=== PATIENT | female | born 1935 | race Caucasian/White ===

== ENCOUNTER 2017-02-20 15:00 | Emergency (ER) | payer OTHER ==
--- NOTE | 2017-02-20 16:23 | DI ---
CT HEAD SCAN WITHOUT IV CONTRAST, 02/20/2017 3:22 PM : Clinical History: Injury. The patient fell 3 days ago and now has confusion. The patient is anticoagu lated with Plavix. Previous Exam: None at this facility. Scans are obtained from the foramen magnum to the vertex without IV contrast. The fourth ventricle is of normal size, shape, position and contour. The third and lateral ventricles are very mildly dilated but are otherwise normal. There are no abnormal areas of increased or decrea sed density. Specifically, there is no evidence of an acute intracranial hemorrhagic focus. There is moderate cerebellar and cerebral atrophy. There are no extracerebral mantles or shift of the midline structures. Bone window evaluation is normal. The paranasal sinuses are normal. READIN. There is no evidence of an acute intracranial hemorrhagic focus or bland infarct. 2. Moderate cerebellar and cerebral atrophy.
--- NOTE | 2017-02-20 16:35 | DI ---
LEFT KNEE, 02/20/2017 3:23 PM: Clinical History: Injury. The patient fell. Previous Exam: 10/08/2013. 3 views are submitted. There is no acute soft tissue, osseous, or joint abnormality. Calcifications a re present in the medial and lateral menisci and the patellar cartilage indicating chondrocalcinosis. There is mild lateral subluxation of the patella with degenerative arthritic change involving the la teral portion of the patellofemoral joint. Readin. There is no acute fracture or dislocation. 2. Chondrocalcinosis. 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
--- NOTE | 2017-02-20 16:56 | PDOC ---
Fall HPI - General Chief Complaint: Fall Stated Complaint: FALL TODAY Date Seen by Provider: 02/20/17 Time Seen by Provider: 15:15 Source: POSITIVE: Patient Exam Limitations: POSITIVE: No limitations Nurse's Notes Reviewed & Considered: Yes - History of Present Illness Initial Comments: The patient is an 81-year-old female who resents to the emergency department after a fall on Sunday this last weekend. She states that she was in her home and tripped and fell forward. She states that she landed on both of her knees and subsequently hit her head. She denies any loss of consciousness however did have an abrasion to her forehead. She also is complaining primarily of left knee pain. She denies any injury to her hands or wrists, chest wall or abdomen. She denies any neck or back pain. She has not had any associated headaches however she reports she doesn't feel as sharp is normal and has been having some problems with short-term memory the last couple of days. She also has had some intermittent dizziness however this seems to be better today. She denies any numbness or weakness in her arms or legs. She does take Plavix for a history of TIA. Have you received a tetanus shot in the past 10 years?: Unknown - Patient Home Medications Home Medications: Home Medications Zyrtec 1 tab PO QD 09/12/11 Ibuprofen 2 cap PO BID PRN 10/17/12 Blood-Glucose Meter [Freestyle [place] Lite] 1 each MC QD #1 each 04/24/14 Test Strips 1 each IN 1-2X daily #50 strip 04/30/14 Docusate Sodium [Colace] 100 mg PO DAILY cap 09/13/15 Fluocinonide 30 gm TOPICAL DAILY tube 09/13/15 Blood Sugar Diagnostic [Glucose Test Strip] 1 each IN 1-2X DAILY #50 strip 10/28 Simvastatin 1 tab PO DAILY #90 tab 04/03/16 Omeprazole 1 cap PO BID #60 cap 07/18/16 Amlodipine Besylate 1 tab PO QD #90 tab 07/25/16 Losartan Potassium 50 mg PO DAILY #90 tab 07/28/16 Clopidogrel Bisulfate [Plavix] 1 tab-cap ORAL QD #90 tab-cap 11/13/16 Levothyroxine Sodium [Synthroid] 1 tab PO QD #90 tab 11/13/16 Hydrochlorothiazide 1 tab PO DAILY #90 tab 02/16/17 Cholecalciferol (Vitamin D3) [Vitamin D3] 1 cap PO DAILY cap 02/20/17 Metformin HCl [FORTAMET] 500 mg PO BID 02/20/17 Tramadol HCl 50 mg PO BEDTIME 02/20/17 - Patient Allergies Allergies/Adverse Reactions: Allergies Allergy/AdvReac Type Severity Reaction Status Date / Time Penicillins Allergy Severe SWELLING Verified 02/20/17 16:04 OF TONGUE Past Medical History - heen HEENT History: Denies History Cardiovascular History: Hypertension, Hyperlipidemia Additional Cardiovasular History: MURMUR Respiratory History: Denies History Gastrointestinal History: Peptic Ulcer Disease Additional Gastrointestinal History: 15 YRS AGO PUD Genitourinary History: Denies History Endocrine History: Type 2 Diabetes (oral), Hypothyroidism Musculoskeletal History: Arthritis, Back Pain Prosthesis or Implant: Yes (SPINE STIMULATOR/CATARACT) Neurological History: TIA Additional Neurological History: DOUBLE VISION X2 POSSIBLE DUE TO TIA 15-30 YRS AGO Blood Disorders: Anemia Psychiatric History: Denies History History of Sexually Transmitted Diseases: No Cancer History: Denies History In Past Year Been Physically Harmed or Verbally Threatened: No History of MDRO: No History of Other Communicable Diseases: No Tobacco Use: Never Smoker Alcohol Use: Occasionally Substance Use Type: None Previous Surgical History: Yes Type / Date of Surgery: CATARACT EXT/ COLONOSCOPY/ EGD/ HYST/ L5-S1 FUSION/ TONSILECTOMY/ OOPHORECTOMY/ SPINE STIMULATOR IMPLANTED 2014 Anesthesia Reactions: No Malignant Hyperthermia: No Significant Family History: No pertinent family hx, Heart disease, Diabetes Past Medical History Reviewed: Reviewed - No Changes ROS - Limitations ROS Limitations: No Limitations Constitution: DENIES: Chills, Fever Cardiovascular: DENIES: Chest Pain Respiratory: REPORTS: Denies Resp Symptoms Neurological: REPORTS: Confusion (Short-term memory loss and she doesn't feel as sharp as normal), Dizziness (Intermittent episodes of dizziness, none today) . DENIES: Headache, Fainting Gastrointestinal: REPORTS: Denies GI Symptoms. 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 Nml , PERRL, EOMI, Other (She does have an abrasion to the for head from her fall with no obvious bony deformity or tenderness, she has multiple lesions on her forehead and face from recent dermatology procedure) - Neck Neck: POSITIVE: Non Tender, Painless ROM - Respiratory / CVS Respiratory / CVS: POSITIVE: Chest Non Tender, Breath Sounds Normal, No Respiratory Distress, Heart Sounds Normal, Regular Rate/Rhythm Peripheral Pulses: Dorsalis-pedis (R): 2+, Dorsalis-pedis (L): 2+ - Abdomen Abdomen: Soft: (All Quadrants), Denies Tenderness: (All Quadrants), No Distention: (All Quadrants) - Neuro / Psych Neuro / Psych: POSITIVE: Oriented X3, paper products printer Normal As Tested, Motor Normal, Sensation Normal - Skin Skin: POSITIVE: Intact - Back Back: POSITIVE: Normal Inspection - Extremities Additional Extremities Details: Examination the right knee reveals no obvious deformity, there is some mild swelling to the knee, no erythema or bruising, no gross instability or bony tenderness, she does have some pain with range of motion Fall Progress - Results Reviewed by me Xrays/CTs/US Reviewed by me: Yes Discussed with Radiologist: Yes Radiology Findings: X-ray of the left knee reveals degenerative changes with no acute fracture per radiologist. CT scan of her head reveals no evidence of intracranial hemorrhage or any other acute findings per radiologist. She does have evidence of atrophy. - Patient's Progress MDM / ED Course: CT and x-ray findings were discussed with the patient. Her symptoms are consistent with concussion. There is no evidence of intracranial hemorrhage on her CT. Her knee x-ray did not reveal any fracture however she does have degenerative changes. She is advised to take Tylenol as needed for pain. She will return to the emergency room if she develops increased headache, increased confusion, increased pain, any worsening or change in symptoms. She is advised follow-up with primary care in 1 week. - Consult Counseled: POSITIVE: Patient, Family, RE: Radiology Results, RE: DX, RE: Need for F/U Patient Care Time - Estimated PCT Patient Care Time (In Minutes): 25 Vital Signs - VS Reviewed Vital Signs Reviewed: Yes (written documentation reviewed) Discharge Clinical Impression: Concussion, Knee sprain Discharge Disposition: Discharged to Home Condition: Stable Patient Instructions Given at Discharge: Concussion (ED), Knee Pain (ED) Additional Instructions: The CAT scan of the brain did not reveal any evidence of bleeding. The x-ray of the left knee reveals arthritic changes with no evidence of fracture. Her symptoms are consistent with a mild concussion after hitting her head. It is not uncommon to have episodes of memory issues, dizziness, headaches or nausea after a concussion that can last up to a week. For the knee you can take Tylenol as needed for pain. Return to the emergency room if any increased confusion, increased headache, any worsening or change in symptoms. Recommend follow-up with primary care in 1 week. Follow Up With: KAYE AYERS [Primary Care Provider] -
[2017-02-20 17:17] VITALS: RESP 16; TEMP 97.4
== END 2017-02-20 17:05 | disposition home or self-care (01) ==
LOC: ER 15:00
DX: S83.92XA Sprain of unspecified site of left knee, initial encounter (principal); S06.0X0A Concussion without loss of consciousness, initial encounter; S00.81XA Abrasion of other part of head, initial encounter; R42 Dizziness and giddiness; E11.9 Type 2 diabetes mellitus without complications; W01.198A Fall on same level from slipping, tripping and stumbling with subsequent striking against other object, initial encounter
CPT/HCPCS: 70450; 73562; 99283

== ENCOUNTER → 2017-03-19 | Outpatient (CLI) | payer OTHER ==
[2017-03-19 16:44] LABS: HEMOGLOBIN A1C 6.42 % (4.2-6.0)
== END ==
LOC: MOB LAB 12:24
PROVIDERS: ATTEND Family Medicine
DX: E11.9 Type 2 diabetes mellitus without complications (principal); E78.5 Hyperlipidemia, unspecified; E03.9 Hypothyroidism, unspecified; I49.9 Cardiac arrhythmia, unspecified
CPT/HCPCS: 36415; 83036; G0439; G0463

== ENCOUNTER → 2017-05-21 | Outpatient (CLI) | payer OTHER ==
--- NOTE | 2017-05-21 14:07 | DI ---
LEFT WRIST, 05/21/2017 12:36 PM: Clinical History: Left wrist pain. Previous Exam: None at this facility. 3 views are submitted. There is no acute soft tissue, osseous, or joint abnormality. Severe arthritic changes present in the triscaphe joint as well as the lunocapitate joint. There is lateral subluxati on of the first metacarpal bone. Calcifications are present in the triangular fibrocartilage. There i s osteoporosis. Readin. Severe arthritic changes are present in the triscaphe joint and the lunocapitate joint. 2. Osteoporosis.
== END ==
LOC: MOB LAB 12:26
DX: M25.532 Pain in left wrist (principal); J02.9 Acute pharyngitis, unspecified; M19.032 Primary osteoarthritis, left wrist; W19.XXXA Unspecified fall, initial encounter; R09.81 Nasal congestion
CPT/HCPCS: 36415; 73110; 87880; 99213; G0463